=== PATIENT | male | born 1965 | race Caucasian/White ===

== ENCOUNTER 2025-07-06 11:36 | Day surgery (SDC) | payer BC ==
--- NOTE | 2025-07-05 21:22 | HP ---
HISTORY OF PRESENT ILLNESS: A 59-year-old who has large colon cancer and questionable involved nodes. He needs a Port-A-Cath for IV treatment. PAST MEDICAL HISTORY: Abdominal pain, right groin and right flank area. HOME MEDICATIONS: Occasionally he takes Tylenol Extra-Strength. PAST SURGICAL HISTORY: Cataract lens surgery, had colonoscopy in the past. SOCIAL HISTORY: No smoking. Occasional alcohol use. FAMILY HISTORY: Negative in regard to this problem. REVIEW OF SYSTEMS: Twelve systems reviewed. Pertinent for medical problems as noted above and per admission assessment. PHYSICAL EXAMINATION: GENERAL: No acute distress. HEENT: Sclerae nonicteric. NECK: No JVD. CHEST: Equal excursion. Nonlabored breathing. CARDIOVASCULAR: Regular rate and rhythm. ABDOMEN: Soft. EXTREMITIES: No cyanosis or edema. NEUROLOGIC: Alert and oriented. Moving all extremities symmetrically. PSYCHIATRIC: Appropriate mood and affect. SKIN: Dry. IMPRESSION: Large cancer. Discussed option of partial colectomy. Patient will see his oncologist. He is in need of a Port-A-Cath placement for his neoadjuvant treatment. Risks of bleeding and infection, risk of thrombosis, pneumothorax, risk of arterial injury, small risk of venous tear, small risk of mortality, risk of port or catheter fracture or failure, infection, possible removal, general risk of anesthesia. We will proceed with outpatient Port-A-Cath placement.
[~2025-07-06 11:36] MED LIST: Lactated Ringers 1,000 ML IV ONE; XYLOCAINE 1% HCL 20 ML MDV ONE
[2025-07-06] MEDS ORDERED: Sensorcaine 0.25% 10 ML ONE (11:40)
[2025-07-06] MEDS ORDERED: Lactated Ringers 1,000 ML IV ONE (11:41)
[2025-07-06] MEDS ORDERED: CEFAZOLIN SODIUM ONE (11:50)
[2025-07-06] MEDS: Lactated Ringers 1,000 ML IV SCH (12:19)
[2025-07-06] MEDS ORDERED: SUBLIMAZE 100 MCG/2 ML ONE (12:57)
[2025-07-06] MEDS ORDERED: Xylocaine-Mpf 2% 5 Ml Vial ONE (12:58)
[2025-07-06] MEDS ORDERED: Versed 2 MG/2 ML Injection ONE (12:58)
[2025-07-06] MEDS ORDERED: propofoL IV ONE ×3 (12:58→13:54)
--- NOTE | 2025-07-06 14:05 | XRAY ---
Indication: Port placement. Intraoperative fluoroscopy provided for 4 seconds. 3 digital spot images submitted for interpretation demonstrates right Port-A-Cath with tip overlying SVC. Correlate with intraoperative findings/report.
[2025-07-06 14:33] VITALS: RESP 16
[2025-07-06 14:45] VITALS: BP 134/83; PULSE 65; TEMP 98; O2SAT 96
--- NOTE | 2025-07-08 09:26 | OP ---
SURGERY DATE/TIME: 07/06/2025 [id number] PREOPERATIVE DIAGNOSIS: Right colon cancer, need for Port-a-Cath for IV treatment. POSTOPERATIVE DIAGNOSIS: Right colon cancer, need for Port-a-Cath for IV treatment. PROCEDURE: 1) Tunneled Port-a-Cath placement, right subclavian vein. 2) C-arm fluoroscopy interpretation and management. SURGEON: Aidan Hong MD. GRADALL OPERATOR: DANIAL Esquivel. ESTIMATED BLOOD LOSS: Minimal. INDICATIONS: As above. Consent was obtained. DESCRIPTION OF PROCEDURE AND FINDINGS: Patient was taken to the operating room. MAC anesthesia induced. After official time-out and no disagreement in planned procedure, in Trendelenburg position after patient was found to have no disagreement with the planned procedure. Patient was prepped and draped in the usual sterile fashion. Lidocaine 1% local was infiltrated. An 18-gauge cannulation needle was inserted on the second pass. Good dark nonpulsatile venous return. Guidewire passed without difficulty, confirmed down SCV by C-arm fluoroscopy. This was followed by anesthetizing the tunnel tract and port pocket area. Transverse incision made. Inferior subcutaneous port pocket created with cautery. Port was secured to the chest wall with Prolene suture x2. Catheter tunneled down from the cannulation site down to the port pocket area. The dilator breakaway sheath initially passed, however, but the original sheath had a little crease in it and had to be discarded. The dilator was easily passed, and then a new dilator breakaway sheath was easily passed over the guidewire. The dilator and guidewire were removed. The catheter fed down the breakaway sheath. The tip was in the distal SVC on C-arm fluoroscopy. It was cut to the appropriate length and snapped onto the port. On this particular model, the metal portion of the port was not taping well enough. It took a little bit of time but was able to pass the catheter onto this metal and it was then locked in place with the hub provided in the kit. Port aspirated dark nonpulsatile return with ease, flushed with heparinized saline with ease. Another film was taken. The lung block were viewed bilaterally. Again, the port aspirated dark nonpulsatile return and was flushed with heparinized saline with ease. Good hemostasis was noted. Subcutaneous closed with 3-0 Vicryl. Skin closed with 4-0 Vicryl. Steri-Strips and sterile dressing applied. The patient tolerated the procedure well. There were no immediate complications. Findings discussed with family out in the waiting area.
== END 2025-07-06 15:00 | disposition home or self-care (01) ==
LOC: SDC 11:36
PROVIDERS: ATTEND Surgery
DX: Z45.2 Encounter for adjustment and management of vascular access device (principal); C18.9 Malignant neoplasm of colon, unspecified
CPT/HCPCS: 36561; 77001; C1788